=== PATIENT | male | born 1950 | race Caucasian/White ===

== ENCOUNTER 2018-11-10 13:47 | Emergency (ER) | payer MEDICARE, OTHER ==
[~2018-11-10] VITALS: Ht 185.4 cm; Wt 127.0 kg
[2018-11-10] MEDS ORDERED: METO50 PO (13:58)
[2018-11-10] MEDS ORDERED: LOSARTAN-HCTZ1 EAC1 PO (13:58)
[2018-11-10] MEDS ORDERED: TOCO1000 PO (13:58)
[2018-11-10] MEDS ORDERED: AMLO5 PO (13:58)
[2018-11-10] MEDS ORDERED: CLON.1 (13:58)
[2018-11-10 14:34] LABS: BASOPHILS ABSOLUTE AUTO 0.04 K/mm3 (0.00-0.23); BASOPHILS PERCENT AUTO 0 % (0-2); EOSINOPHILS ABSOLUTE AUTO 0.03 K/mm3 (0.00-0.68); EOSINOPHILS PERCENT AUTO 0 % (0-6); Hematocrit 47.3 % (37.0-53.0); Hemoglobin 15.7 g/dL (13.5-17.5); IMMATURE GRAN ABSOLUTE AUTO 0.05 K/mm3 (0.00-0.10); IMMATURE GRAN PERCENT AUTO 1 % (0-1); LYMPHOCYTES ABSOLUTE AUTO 1.89 K/mm3 (0.84-5.20); LYMPHOCYTES PERCENT AUTO 21 % (21-46); MONOCYTES ABSOLUTE AUTO 0.89 K/mm3 (0.16-1.47); MONOCYTES PERCENT AUTO 10 % (4-13); Mean Corpuscular HGB 30.9 pg (26.0-34.0); Mean Corpuscular HGB Conc 33.2 g/dL (31.5-36.5); Mean Corpuscular Volume 93 fL (80-100); Mean Platelet Volume 10.1 fL (9.1-12.4); NEUTROPHILS PERCENT AUTO 68 % (41-73); Platelet Count 246 K/mm3 (150-400); RDW Coefficient Variation 12.2 % (11.7-14.2); RDW Standard Deviation 42.2 fL (35.1-46.3); Red Blood Cell Count 5.08 M/mm3 (4.30-5.90)
[2018-11-10 14:49] LABS: Alanine Aminotransfer (ALT/SGP 29 U/L (12-78); Albumin/Globulin Ratio 1.1 (0.8-1.8); Alk Phos 79 U/L (50-136); Anion Gap 11 mmol/L (6-16); Aspartate Aminotrans (AST/SGOT 15 U/L (12-37); Bilirubin, Total 0.7 mg/dL (0.1-1.0); Blood Urea Nitrogen 16 mg/dL (8-24); Bun/Creatinine Ratio 19.7 (12.0-20.0); CO2, Blood 26 mmol/L (21-32); Calcium, Blood 8.5 mg/dL (8.5-10.1); Chloride, Blood 101 mmol/L (98-108); Creatinine, Blood 0.81 mg/dL (0.60-1.20); Globulin, Blood 3.6 g/dL (2.2-4.0); Glomerular Filtration Rate >60 (60-); Glucose, Blood 120 mg/dL (70-99); Potassium, Blood 2.8 mmol/L (3.5-5.5); Sodium, Blood 138 mmol/L (136-145); Total Protein, Blood 7.6 g/dL (6.4-8.2); Troponin I <0.015 ng/mL (0.000-0.040)
[2018-11-10] MEDS ORDERED: POTCHL20ER PO (17:27)
[2018-11-10] MEDS ORDERED: XARELTO20 MG PO (17:27)
== END 2018-11-10 17:54 | disposition home or self-care (01) ==
LOC: ER 13:47
PROVIDERS: Physician Assistant
DX: I48.91 Unspecified atrial fibrillation (principal); E87.6 Hypokalemia; I10 Essential (primary) hypertension; Z79.899 Other long term (current) drug therapy
CPT/HCPCS: 36415; 71046; 80053; 84484; 85025; 93005; 93010; 96374; 99285-25

== ENCOUNTER 2018-11-17 16:44 | Emergency (ER) | payer MEDICARE, OTHER ==
[~2018-11-17] VITALS: Ht 185.4 cm; Wt 127.0 kg
[~2018-11-17 16:44] MED LIST: AMLO5 PO; CLON.1 PO; LOSARTAN-HCTZ1 EAC1 PO; METO50 PO; POTCHL20ER PO; TOCO1000 PO; XARELTO20 MG PO
[2018-11-17] MEDS ORDERED: DILT180 PO (17:52)
[2018-11-17 18:19] LABS: BASOPHILS ABSOLUTE AUTO 0.07 K/mm3 (0.00-0.23); BASOPHILS PERCENT AUTO 1 % (0-2); EOSINOPHILS ABSOLUTE AUTO 0.09 K/mm3 (0.00-0.68); EOSINOPHILS PERCENT AUTO 1 % (0-6); Hematocrit 43.7 % (37.0-53.0); Hemoglobin 14.6 g/dL (13.5-17.5); IMMATURE GRAN ABSOLUTE AUTO 0.09 K/mm3 (0.00-0.10); IMMATURE GRAN PERCENT AUTO 1 % (0-1); LYMPHOCYTES ABSOLUTE AUTO 1.73 K/mm3 (0.84-5.20); LYMPHOCYTES PERCENT AUTO 17 % (21-46); MONOCYTES PERCENT AUTO 11 % (4-13); Mean Corpuscular HGB 31.4 pg (26.0-34.0); Mean Corpuscular HGB Conc 33.4 g/dL (31.5-36.5); Mean Corpuscular Volume 94 fL (80-100); Mean Platelet Volume 9.8 fL (9.1-12.4); NEUTROPHILS ABSOLUTE AUTO 7.28 K/mm3 (1.96-9.15); NEUTROPHILS PERCENT AUTO 70 % (41-73); Platelet Count 207 K/mm3 (150-400); RDW Coefficient Variation 12.7 % (11.7-14.2); RDW Standard Deviation 43.3 fL (35.1-46.3); Red Blood Cell Count 4.65 M/mm3 (4.30-5.90); White Blood Cell Count 10.36 K/mm3 (4.00-11.30)
[2018-11-17 18:47] LABS: Alanine Aminotransfer (ALT/SGP 41 U/L (12-78); Albumin, Blood 3.9 g/dL (3.4-5.0); Albumin/Globulin Ratio 1.2 (0.8-1.8); Alk Phos 83 U/L (50-136); Anion Gap 5 mmol/L (6-16); Aspartate Aminotrans (AST/SGOT 18 U/L (12-37); Bilirubin, Total 0.4 mg/dL (0.1-1.0); Blood Urea Nitrogen 14 mg/dL (8-24); Bun/Creatinine Ratio 17.6 (12.0-20.0); CO2, Blood 27 mmol/L (21-32); Calcium, Blood 8.6 mg/dL (8.5-10.1); Chloride, Blood 108 mmol/L (98-108); Globulin, Blood 3.2 g/dL (2.2-4.0); Glomerular Filtration Rate >60 (60-); Glucose, Blood 101 mg/dL (70-99); Potassium, Blood 4.1 mmol/L (3.5-5.5); Sodium, Blood 140 mmol/L (136-145); Total Protein, Blood 7.1 g/dL (6.4-8.2); Troponin I <0.015 ng/mL (0.000-0.040)
[2018-11-17] MEDS ORDERED: ALPR.5 PO (20:11)
[2018-11-17 21:39] LABS: Magnesium, Blood 2.3 mg/dL (1.6-2.4)
[2018-11-17 21:41] LABS: Thyroid Stimulating Hormone 4.2 uIU/mL (0.360-4.800)
== END 2018-11-17 22:02 | disposition home or self-care (01) ==
LOC: ER 16:44
PROVIDERS: Emergency Medicine; Nurse Practitioner Acute Care
DX: I48.91 Unspecified atrial fibrillation (principal); I10 Essential (primary) hypertension; Z79.899 Other long term (current) drug therapy; Z87.891 Personal history of nicotine dependence
CPT/HCPCS: 36415; 71046; 80053; 83735; 83880; 84443; 84484; 85025; 93005; 93010; 96374; 99285-25

== ENCOUNTER 2023-07-19 11:39 | Emergency (ER) | payer MEDICARE ==
[~2023-07-19] VITALS: Ht 182.9 cm; Wt 118.8 kg
[~2023-07-19 11:39] MED LIST changes: +ALPR.5 PO; +DILT180 PO; +K-RIGHT SOFTGE1 EACH PO; +THERA-D2000 UNIT PO
[2023-07-19 12:03] VITALS: BP 187/98
[2023-07-19 12:24] LABS: Source, Urine Clean Catch
[2023-07-19 12:37] LABS: Appearance, Urine Clear (Clear); Bilirubin, Urine Neg (Neg); Blood, Urine 1+ (Neg); Color, Urine Yellow (P-Yellow); Glucose Qualitative, Urine Neg (Neg); Ketones, Urine Neg (Neg); Leukocyte Esterase, Urine 1+ (Neg); Nitrite, Urine Neg (Neg); Protein, Urine Neg (Neg); Urobilinogen, Urine NORM (Normal)
[2023-07-19 12:44] LABS: Hyaline Casts 0-2 /lpf (0-2)
[2023-07-19 12:45] LABS: Bacteria Few /hpf; Mucus Heavy (0-Heavy); Squamous Epithelial Cells Rare /hpf (Few)
[2023-07-19 12:53] LABS: Influenza A, PCR NEGATIVE (NEGATIVE); Influenza B, PCR NEGATIVE (NEGATIVE); Resp Syncytial Virus, PCR NEGATIVE (NEGATIVE); SARS-Cov-2 (COVID-19) PCR, MMC NEGATIVE (NEGATIVE)
== END 2023-07-19 13:25 | disposition home or self-care (01) ==
LOC: ER 11:39
PROVIDERS: Student in an Organized Health Care Education/Training Program
DX: Z01.818 Encounter for other preprocedural examination (principal); R50.9 Fever, unspecified; M79.81 Nontraumatic hematoma of soft tissue; R82.71 Bacteriuria; Z20.822 Contact with and (suspected) exposure to COVID-19; I10 Essential (primary) hypertension; I48.91 Unspecified atrial fibrillation; Z87.891 Personal history of nicotine dependence; Z79.899 Other long term (current) drug therapy; Z88.5 Allergy status to narcotic agent
CPT/HCPCS: 0241U; 81001; 87086; 99282

== ENCOUNTER 2023-07-21 06:06 | Day surgery (SDC) | payer MEDICARE ==
[~2023-07-21] VITALS: Ht 180 cm; Wt 114.5 kg
[2023-07-21] VITALS (18 sets, daily range): BP systolic 103–174; BP diastolic 60–92
[2023-07-21] MEDS ORDERED: FUROSEMIDE40 MG PO (07:13)
--- NOTE | 2023-07-21 07:18 | NUR ---
History, Chart, Medications and Allergies reviewed before start of procedure. Ambulatory in Day Surgery. Pre-Op teaching done. Pt verbalizes understanding. Patient confirms NPO status and agrees with scheduled surgery. Patient reports completing Chlorhexadine shower X2 prior to admission to hospital. Surgical site prepped with 2% Chlorhexidine cloth wipe. Lungs clear T/O to Auscultation. Patient States Post-Procedure ride home has been arranged.
--- NOTE | 2023-07-21 08:49 | NUR ---
07/21/23 0849 Maurice Lowry I TWO PIECES OF FOAM PLACED IN WOUND. 07/21/23
--- NOTE | 2023-07-21 10:47 | NUR ---
DISCHARGE NOTE PT A&OX4, BREATHING RA, NO COMPLAINTS, TOLERATING PO FLUIDS AND FOOD. 0977 DR GUTIERREZ AT BEDSIDE TO ASSESS WOUND AND DRAINAGE, NO ADDITIONAL INSTRUCTION. 1015 TRIMMER OPERATOR TO ASSESS WOUND VAC ALARM- BROUGHT ADDITIONAL CANISTERS FOR CHANGING AT HOME AND PROVIDED WOUND CARE INSTRUCTIONS TO PATIENT. 2791 ACE DICKENSMIGRATION AGENT NURSE REPLACED DRESSING.
== END 2023-07-21 12:50 | disposition home or self-care (01) ==
LOC: ORSCMMR 06:06 → ORD 07:30 → ORSCMMR 07:30
PROVIDERS: Surgery
PROC: 0JB90ZZ Excision of Buttock Subcutaneous Tissue and Fascia, Open Approach (ICD-10-PCS; principal; 2023-07-21 07:30)
DX: S30.0XXD Contusion of lower back and pelvis, subsequent encounter (principal); C49.8 Malignant neoplasm of overlapping sites of connective and soft tissue; I10 Essential (primary) hypertension; I48.91 Unspecified atrial fibrillation; Z79.899 Other long term (current) drug therapy; Z87.891 Personal history of nicotine dependence; Z79.01 Long term (current) use of anticoagulants
CPT/HCPCS: 88305; A9270; J0690; J1100; J1170; J2405; J2704; J3010; J7120

== ENCOUNTER 2023-07-25 21:24 | Emergency (ER) | payer MEDICARE ==
[~2023-07-25] VITALS: Ht 188 cm; Wt 99.8 kg
[~2023-07-25 21:24] MED LIST changes: +FUROSEMIDE40 MG PO
== END 2023-07-25 23:00 | disposition home or self-care (01) ==
LOC: ER 21:24
DX: Z48.01 Encounter for change or removal of surgical wound dressing (principal); S30.0XXA Contusion of lower back and pelvis, initial encounter; I10 Essential (primary) hypertension; I48.91 Unspecified atrial fibrillation; Z88.5 Allergy status to narcotic agent; Z79.899 Other long term (current) drug therapy; X58.XXXA Exposure to other specified factors, initial encounter
CPT/HCPCS: 99282

== ENCOUNTER 2023-07-26 02:57 | Day surgery (SDC) | payer MEDICARE | END 2023-07-26 22:56 | disposition home or self-care (01) | LOC: WOUND 02:57 | DX: T81.31XD Disruption of external operation (surgical) wound, not elsewhere classified, subsequent encounter (principal); M79.81 Nontraumatic hematoma of soft tissue; D68.32 Hemorrhagic disorder due to extrinsic circulating anticoagulants; Z88.5 Allergy status to narcotic agent; Z87.891 Personal history of nicotine dependence; Y83.8 Other surgical procedures as the cause of abnormal reaction of the patient, or of later complication, without mention of misadventure at the time of the procedure | CPT/HCPCS: A9270; G0463 ==

== ENCOUNTER 2023-07-28 01:46 | Day surgery (SDC) | payer MEDICARE | END 2023-07-28 22:35 | disposition home or self-care (01) | LOC: WOUND 01:46 | DX: M79.81 Nontraumatic hematoma of soft tissue (principal); S31.829D Unspecified open wound of left buttock, subsequent encounter; D68.32 Hemorrhagic disorder due to extrinsic circulating anticoagulants; X58.XXXD Exposure to other specified factors, subsequent encounter ==

== ENCOUNTER 2023-07-30 03:46 | Day surgery (SDC) | payer MEDICARE | END 2023-07-30 22:49 | disposition home or self-care (01) | LOC: WOUND 03:46 | DX: M79.81 Nontraumatic hematoma of soft tissue (principal); S31.829D Unspecified open wound of left buttock, subsequent encounter; D68.32 Hemorrhagic disorder due to extrinsic circulating anticoagulants; X58.XXXD Exposure to other specified factors, subsequent encounter | CPT/HCPCS: A9270 ==

== ENCOUNTER 2023-08-02 03:46 | Day surgery (SDC) | payer MEDICARE | END 2023-08-02 22:49 | disposition home or self-care (01) | LOC: WOUND 03:46 | DX: S31.829D Unspecified open wound of left buttock, subsequent encounter (principal); D68.32 Hemorrhagic disorder due to extrinsic circulating anticoagulants; M79.81 Nontraumatic hematoma of soft tissue | CPT/HCPCS: A9270 ==

== ENCOUNTER 2023-08-09 03:30 | Day surgery (SDC) | payer MEDICARE ==
[2023-08-10] MEDS ORDERED: XARELTO20 MG PO (17:01)
[2023-08-10] MEDS ORDERED: IMIP25 PO (17:02)
== END 2023-08-09 23:06 | disposition home or self-care (01) ==
LOC: WOUND 03:30
DX: S31.829D Unspecified open wound of left buttock, subsequent encounter (principal); D68.32 Hemorrhagic disorder due to extrinsic circulating anticoagulants; M79.81 Nontraumatic hematoma of soft tissue

== ENCOUNTER 2023-08-10 11:27 | Day surgery (SDC) | payer MEDICARE ==
[2023-08-10] MEDS ORDERED: XARELTO20 MG PO (17:01)
[2023-08-10] MEDS ORDERED: IMIP25 PO (17:02)
[2023-08-11] MEDS ORDERED: OXYB5 PO (16:58)
== END 2023-08-10 22:41 | disposition home or self-care (01) ==
LOC: WOUND 11:27
DX: M79.81 Nontraumatic hematoma of soft tissue (principal)
CPT/HCPCS: G0463

== ENCOUNTER 2023-08-10 12:00 | Inpatient (IN) | payer MEDICARE ==
[~2023-08-10] VITALS: Ht 188 cm; Wt 114.5 kg
[2023-08-10 12:44] LABS: Hematocrit 21.5 % (37.0-53.0); Hemoglobin 6.5 g/dL (13.5-17.5); Mean Corpuscular HGB 23.1 pg (26.0-34.0); Mean Corpuscular HGB Conc 30.2 g/dL (31.5-36.5); Mean Corpuscular Volume 77 fL (80-100); Mean Platelet Volume 9.3 fL (9.1-12.4); NRBC ABSOLUTE 0.05 K/mm3 (0.00-0.02); NRBC Auto 0.2 /100 WBC (0.0-0.2); Platelet Count 561 K/mm3 (150-400); RDW Coefficient Variation 15.3 % (11.7-14.2); RDW Standard Deviation 42.3 fL (35.1-46.3); Red Blood Cell Count 2.81 M/mm3 (4.30-5.90); White Blood Cell Count 29.83 K/mm3 (4.00-11.30)
[2023-08-10 13:04] LABS: Albumin, Blood 2.1 g/dL (3.4-5.0); Albumin/Globulin Ratio 0.5 (0.8-1.8); Bilirubin, Total 0.3 mg/dL (0.1-1.0); Bun/Creatinine Ratio 24.7 (12.0-20.0); Calcium, Blood 8.3 mg/dL (8.5-10.1); Creatinine, Blood 0.81 mg/dL (0.60-1.20); Globulin, Blood 4.5 g/dL (2.2-4.0); Potassium, Blood 4.3 mmol/L (3.5-5.5); Total Protein, Blood 6.6 g/dL (6.4-8.2)
[2023-08-10 13:22] LABS: BAND PERCENT MAN 14 % (0-8); BASOPHILS ABSOLUTE MAN 0.29 K/mm3 (0.00-0.23); BASOPHILS PERCENT MAN 1 % (0-2); EOSINOPHILS ABSOLUTE MAN 3.87 K/mm3 (0.00-0.68); EOSINOPHILS PERCENT MAN 13 % (0-6); LYMPHOCYTES ABSOLUTE MAN 1.19 K/mm3 (0.84-5.20); LYMPHOCYTES PERCENT MAN 4 % (21-46); MONOCYTES ABSOLUTE MAN 1.78 K/mm3 (0.16-1.47); MONOCYTES PERCENT MAN 6 % (4-13); NEUTROPHILS ABSOLUTE MAN 22.67 K/mm3 (1.96-9.15); SEG NEUTROPHILS PERCENT MAN 62 % (41-73); TOTAL CELLS COUNTED 100
[2023-08-10 13:25] LABS: Source, Urine Voided
[2023-08-10 13:39] LABS: Appearance, Urine Clear (Clear); Bilirubin, Urine Neg (Neg); Blood, Urine 1+ (Neg); Color, Urine Yellow (P-Yellow); Glucose Qualitative, Urine Neg (Neg); Ketones, Urine Neg (Neg); Leukocyte Esterase, Urine Neg (Neg); Nitrite, Urine Neg (Neg); Protein, Urine 2+ (Neg); Urobilinogen, Urine NORM (Normal)
[2023-08-10 14:09] LABS: White Blood Cells, Urine 0-2 /hpf (0-5)
[2023-08-10 14:10] LABS: Bacteria Rare /hpf; Squamous Epithelial Cells Rare /hpf (Few)
[2023-08-10 14:17] LABS: Influenza A, PCR NEGATIVE (NEGATIVE); Influenza B, PCR NEGATIVE (NEGATIVE); Resp Syncytial Virus, PCR NEGATIVE (NEGATIVE); SARS-Cov-2 (COVID-19) PCR, MMC NEGATIVE (NEGATIVE)
[2023-08-10] MEDS ORDERED: XARELTO20 MG PO (17:01)
[2023-08-10] MEDS ORDERED: IMIP25 PO (17:02)
[2023-08-10 17:52] VITALS: BP 114/59
[2023-08-10 18:40] VITALS: BP 125/67
--- NOTE | 2023-08-10 19:27 | NUR ---
SHIFT SUMMARY; PATIENT ARRIVED APPROX 1630 FROM ER. HE IS AO X 4 ON ARRIVAL. WOUND IS SOAKING THROUGH BANDAGES AND ONTO GOWN AND SHEETS. HE HAS DIFFICULTY URINATING AND ONLY ABLE TO GO WHEN LAYING ON HIS SIDE AND HAVING A BOWEL MOVEMENT PER PATIENT. HE IS RECEIVING BLOOD X 2 UNITS PER . FAMILY AT BEDSIDE. PATIENT SAYS HE TAKES TYLENOL Q 4 HOURS FOR PAIN. NO ORDER FOR TYLENOL HAS BEEN RECEIVED WILL CALL MD FOR ORDER.
[2023-08-10 19:45] VITALS: BP 126/68
[2023-08-10 21:54] VITALS: BP 135/77
[2023-08-11 00:10] VITALS: BP 140/71
[2023-08-11 01:04] LABS: Hematocrit 23.2 % (37.0-53.0); Hemoglobin 7.3 g/dL (13.5-17.5)
--- NOTE | 2023-08-11 03:57 | NUR ---
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 FULL CODE. IV ANTIB RX ARE SCHEDULED. 2 UNITS OF PRBC'S HAVE BEEN GIVEN. TELEMETRY: NSR @ 84 BPM. HX OF SARCOMA. WOUND VAC REMOVED DUE TO SEPSIS. WOUND PACKED WITH GAUZE ROLLS AND ABD PADS, DRAINING SEROSANGINOUS FLUID. MONITORING FREQUENTLY FOR DRESSING CHANGES DUE TO SIGNIFICANT DRAINAGE. HE IS ON RA. HE IS A&O X4. HE IS MEDICATED WITH TYLENOL THIS SHIFT PER HIS REQUESTS.
[2023-08-11 04:26] VITALS: BP 157/82
[2023-08-11 05:23] LABS: BASOPHILS ABSOLUTE AUTO 0.11 K/mm3 (0.00-0.23); BASOPHILS PERCENT AUTO 0 % (0-2); EOSINOPHILS ABSOLUTE AUTO 2.67 K/mm3 (0.00-0.68); EOSINOPHILS PERCENT AUTO 10 % (0-6); Hematocrit 22.6 % (37.0-53.0); Hemoglobin 7.1 g/dL (13.5-17.5); IMMATURE GRAN ABSOLUTE AUTO 1.03 K/mm3 (0.00-0.10); IMMATURE GRAN PERCENT AUTO 4 % (0-1); LYMPHOCYTES ABSOLUTE AUTO 1.27 K/mm3 (0.84-5.20); LYMPHOCYTES PERCENT AUTO 5 % (21-46); MONOCYTES ABSOLUTE AUTO 3.68 K/mm3 (0.16-1.47); MONOCYTES PERCENT AUTO 13 % (4-13); Mean Corpuscular HGB 24.5 pg (26.0-34.0); Mean Corpuscular HGB Conc 31.4 g/dL (31.5-36.5); Mean Corpuscular Volume 78 fL (80-100); Mean Platelet Volume 9.4 fL (9.1-12.4); NEUTROPHILS ABSOLUTE AUTO 19.38 K/mm3 (1.96-9.15); NEUTROPHILS PERCENT AUTO 69 % (41-73); NRBC ABSOLUTE 0.04 K/mm3 (0.00-0.02); NRBC Auto 0.1 /100 WBC (0.0-0.2); Platelet Count 498 K/mm3 (150-400); RDW Coefficient Variation 15.4 % (11.7-14.2); RDW Standard Deviation 42.8 fL (35.1-46.3); White Blood Cell Count 28.14 K/mm3 (4.00-11.30)
[2023-08-11 05:45] LABS: Albumin, Blood 1.8 g/dL (3.4-5.0); Albumin/Globulin Ratio 0.5 (0.8-1.8); Bilirubin, Total 0.7 mg/dL (0.1-1.0); Bun/Creatinine Ratio 23.7 (12.0-20.0); Calcium, Blood 7.8 mg/dL (8.5-10.1); Creatinine, Blood 0.68 mg/dL (0.60-1.20); Globulin, Blood 3.9 g/dL (2.2-4.0); Potassium, Blood 3.7 mmol/L (3.5-5.5); Total Protein, Blood 5.7 g/dL (6.4-8.2)
[2023-08-11 07:44] VITALS: BP 147/88
--- NOTE | 2023-08-11 11:12 | NUR ---
WOUND CARE WOUND CARE OUTER LAYER EXUDRY CHANGED. KERLEX PARTIALLY SATURATED WITH SEROSngenious fluid. no odor noted. TALKED WITH DANTE BELLO, WOUND CARE, HE IS NOT A CANDIDATE FOR A WOUND VAC D/T VOLUME/CHARACTER OF DRAINAGE. CONTINUE POC.
[2023-08-11 12:13] LABS: Stool Occult Blood Guaiac 1 Neg (Neg)
--- NOTE | 2023-08-11 12:52 | NUR ---
WOUND CARE HOLD WOUND VAC. DRY TO DRY DRESSING CHAGES BID. WILL MOST LIKELY NEED TO CHANGE ABD MORE FREQUENTLY D/T AMOUNT OF DRAINAGE. OKAY TO CHANGE COVER DRESSING WITHOUT CHANGING PACKING FOR STRIKE-THROUGH DRAINAGE. PLEASE USE SKIN PREP TO PERIWOUND TO PREVENT BREAKDOWN
--- NOTE | 2023-08-11 13:39 | NUR ---
NOTE PT UP IN RECLINER AT BEDSIDE. ABLE TO WALK WITH 1 ASSIST AND FWW. PT COMFORTABLE IN CHAIR. DRESSING CHANGED X2 SO FAR TODAY. PAIN CONTROLLED WITH ROUTINE TYLENOL. EATING WELL. VOIDING KALLI URINE PER URINEAL. FAMILY AT BEDSIDE. CONTINUE POC.
[2023-08-11 15:03] VITALS: BP 144/68
--- NOTE | 2023-08-11 16:37 | NUR ---
DR LANGLEY-[facility] DR LANGLEY, [facility] CALL[facility] TO [facility] ON [facility]. PHONE [phone]. CARE ON GOING.
--- NOTE | 2023-08-11 16:42 | NUR ---
DR LANGLEY CALLED DR OVALLES TO PASS ON PHONE NUMBER TO CLINIC. CARE ONGOING.
[2023-08-11] MEDS ORDERED: OXYB5 PO (16:58)
--- NOTE | 2023-08-11 17:16 | NUR ---
NOTE PT ALERT. RESTING COMFORTABLY. TYLENOL EFFECTIVE FOR DISCOMFORT. PTOTONIX GTT INFUSING AT 10 ML/HR. POWER GLIDE PLACED RIGHT UE FOR VANCOMYCIN THERAPY. PT AMBULATED TO THE BATHROOM WITH FWW. GAIT SLOW, STEADY. BM X1. HE THEN SAT UP IN THE RECLINER FOR SEVERAL HOURS. MILD SOB WITH ACTIVITY. TELEMETRY-NSR. FAMILY AT BEDSIDE. EATING WELL, MILD ELEVATED TEMPERATURE THIS EVENING. DRESSING TO LEFT HIP CHANGED X3. CARE ONGLING.
[2023-08-11 19:18] VITALS: BP 152/73
--- NOTE | 2023-08-12 03:53 | NUR ---
SHIFT SUMMARY ADMITTED FOR CHRONIC HEMATOMA OF THE LEFT HIP. FULL CODE. PROTONIX INFUSING. HE DOES GET TACHYCARDIC WHEN HE MOVES OR AMBULATES (140'S-150'S BPM) BUT THIS SUBSIDES WHEN HE RESTS. TELEMETRY: TACHY @ 104 BPM. MONITORING H&H. 2 UNITS OF PRBC'S GIVEN SINCE ADMIT. 1 ASSIST W/FWW. POWERGLIDE IN RUE. RECENT NEW DIAGNOSIS OF SARCOMA. POSSIBLE OUTPT TREATMENT AT [facility] PLANNED.
[2023-08-12 05:27] VITALS: BP 164/85
[2023-08-12 07:08] LABS: BASOPHILS ABSOLUTE AUTO 0.13 K/mm3 (0.00-0.23); BASOPHILS PERCENT AUTO 0 % (0-2); EOSINOPHILS ABSOLUTE AUTO 3.31 K/mm3 (0.00-0.68); EOSINOPHILS PERCENT AUTO 10 % (0-6); Hemoglobin 7.1 g/dL (13.5-17.5); IMMATURE GRAN PERCENT AUTO 4 % (0-1); LYMPHOCYTES ABSOLUTE AUTO 1.76 K/mm3 (0.84-5.20); LYMPHOCYTES PERCENT AUTO 6 % (21-46); MONOCYTES ABSOLUTE AUTO 3.49 K/mm3 (0.16-1.47); MONOCYTES PERCENT AUTO 11 % (4-13); Mean Corpuscular HGB 23.7 pg (26.0-34.0); Mean Corpuscular HGB Conc 30.9 g/dL (31.5-36.5); Mean Corpuscular Volume 77 fL (80-100); Mean Platelet Volume 9.1 fL (9.1-12.4); NEUTROPHILS ABSOLUTE AUTO 21.86 K/mm3 (1.96-9.15); NEUTROPHILS PERCENT AUTO 69 % (41-73); Platelet Count 524 K/mm3 (150-400); RDW Coefficient Variation 15.9 % (11.7-14.2); RDW Standard Deviation 43.8 fL (35.1-46.3); Red Blood Cell Count 2.99 M/mm3 (4.30-5.90); White Blood Cell Count 31.75 K/mm3 (4.00-11.30)
[2023-08-12 07:26] LABS: Alanine Aminotransfer (ALT/SGP 28 U/L (12-78); Albumin, Blood 1.7 g/dL (3.4-5.0); Albumin/Globulin Ratio 0.4 (0.8-1.8); Alk Phos 116 U/L (50-136); Anion Gap 7 mmol/L (6-16); Aspartate Aminotrans (AST/SGOT 12 U/L (12-37); Bilirubin, Total 0.3 mg/dL (0.1-1.0); Blood Urea Nitrogen 11 mg/dL (8-24); Bun/Creatinine Ratio 16.6 (12.0-20.0); CO2, Blood 23 mmol/L (21-32); Calcium, Blood 7.8 mg/dL (8.5-10.1); Chloride, Blood 108 mmol/L (98-108); Creatinine, Blood 0.66 mg/dL (0.60-1.20); Glomerular Filtration Rate 98 (60-); Glucose, Blood 158 mg/dL (70-99); Potassium, Blood 3.7 mmol/L (3.5-5.5); Sodium, Blood 138 mmol/L (136-145); Total Protein, Blood 5.7 g/dL (6.4-8.2)
--- NOTE | 2023-08-12 16:13 | NUR ---
NOTE PT UP IN RECLINER FOR THE AFTERNOON. EATING WELL. [id number] EFFECTIVE FOR PAIN CONTROL. LEFT HIP DRESSING CHANGED X2. DRAINAGE TELEPHONE EXCHANGE OPERATOR IN COLOR. NO ODOR NOTED. PT UP WALKING WITH FWW AND SBA D/T PUMP. PROTONIX GTT IN FUSING 10MG/HR. RIGHT UE POWER GLIDE INFUSING BUT NOT DRAWING. VOIDING PER URINAL. ENCOURAGED TO DRINK. FAMILY AT BEDSIDE. CONTINUE POC.
[2023-08-12 20:06] VITALS: BP 143/70
--- NOTE | 2023-08-13 04:04 | NUR ---
SHIFT SUMMARY ADMITTED FOR CHRONIC LEFT HIP HEMATOMA/OSTEOSARCOMA. FULL CODE. IV ANTIB RX. TELEMETRY: NSR @ 87 BPM. [address] IS IN PLACE ON RUE. ON RA. 1 ASSIST TO BSC. 2 UNITS OF PRBC'S INFUSED SINCE ADMIT. DRESSINGS CHANGED EACH SHIFT AND PRN. MONITORING H&H LABS. A&O X4, FORGETFUL. ON REGULAR DIET. NO NEW CONCERNS THIS SHIFT
[2023-08-13 04:58] VITALS: BP 151/77
[2023-08-13 05:11] LABS: BASOPHILS ABSOLUTE AUTO 0.14 K/mm3 (0.00-0.23); BASOPHILS PERCENT AUTO 0 % (0-2); EOSINOPHILS ABSOLUTE AUTO 3.44 K/mm3 (0.00-0.68); EOSINOPHILS PERCENT AUTO 10 % (0-6); Hematocrit 23.9 % (37.0-53.0); Hemoglobin 7.4 g/dL (13.5-17.5); IMMATURE GRAN PERCENT AUTO 3 % (0-1); LYMPHOCYTES ABSOLUTE AUTO 2.05 K/mm3 (0.84-5.20); LYMPHOCYTES PERCENT AUTO 6 % (21-46); MONOCYTES ABSOLUTE AUTO 3.59 K/mm3 (0.16-1.47); MONOCYTES PERCENT AUTO 11 % (4-13); Mean Corpuscular HGB 24.3 pg (26.0-34.0); Mean Corpuscular Volume 78 fL (80-100); Mean Platelet Volume 9.1 fL (9.1-12.4); NEUTROPHILS ABSOLUTE AUTO 23.21 K/mm3 (1.96-9.15); NEUTROPHILS PERCENT AUTO 69 % (41-73); Platelet Count 573 K/mm3 (150-400); RDW Coefficient Variation 16.6 % (11.7-14.2); RDW Standard Deviation 45.6 fL (35.1-46.3); Red Blood Cell Count 3.05 M/mm3 (4.30-5.90); White Blood Cell Count 33.53 K/mm3 (4.00-11.30)
[2023-08-13 05:53] LABS: Albumin, Blood 1.6 g/dL (3.4-5.0); Albumin/Globulin Ratio 0.4 (0.8-1.8); Bilirubin, Total 0.4 mg/dL (0.1-1.0); Bun/Creatinine Ratio 21.6 (12.0-20.0); Calcium, Blood 7.9 mg/dL (8.5-10.1); Creatinine, Blood 0.6 mg/dL (0.60-1.20); Globulin, Blood 4.2 g/dL (2.2-4.0); Potassium, Blood 3.8 mmol/L (3.5-5.5); Total Protein, Blood 5.8 g/dL (6.4-8.2)
[2023-08-13 07:23] VITALS: BP 138/94
--- NOTE | 2023-08-13 14:47 | NUR ---
DRESSING CHANGE DRESSING CHANGED PER ORDERS THIS SHIFT.
--- NOTE | 2023-08-13 17:37 | NUR ---
SHIFT SUMMARY PT A&OX4, VSS, AMB W/ 1 ASSIST, TOLERATING PO, VOIDING, AND PAIN MANAGED PER EMAR. PT ABLE TO GET UP IN THE CHAIR THIS SHIFT AND TOLERATED WELL. DRESSING CHANGED PER ORDERS AND NO OTHER ACUTE CHANGES THIS SHIFT. AWAITING COBRA TRANSFER TO [facility].
[2023-08-13 17:55] VITALS: BP 141/83
[2023-08-13 20:04] LABS: Vancomycin, Trough 15.6 ug/mL (5.0-10.0)
[2023-08-13 20:14] VITALS: BP 150/83
--- NOTE | 2023-08-14 00:33 | NUR ---
NOTIFIED BY SCRAP SAWYER THAT PT HAD 6 SEC RUN OF SVT. CHECKED ON PT AND PT WAS ASYMPTOMATIC SAID THEY WERE MOVING AROUND IN BED. HOSPITALIST NOTIFIED AND INSTRUCTIONS GIVEN TO CONTINUE MONITORING.
--- NOTE | 2023-08-14 01:14 | NUR ---
RECEIVED CALL FROM [facility] TRANSFER RN DANIEL ABOUT PT MEDICAL STATUS. WAS TOLD THAT THERE IS STILL NO [facility] TO [facility] FOR SURGERY. SHE ALSO SAID TO CONTACT [facility] IF PT MEDICAL STATUS CHANGES.
[2023-08-14 04:37] VITALS: BP 154/85
--- NOTE | 2023-08-14 05:01 | NUR ---
SHIFT SUMMARY NOC PT A/O X 4. PLEASANT AND COOPERATIVE WITH CARE. PT STILL AWAITING COBRA TRANSFER FOR BED AT [facility] FOR SURGERY ON 08/19/23, [facility] TRANSFER RN DANIEL CALLED FOR UPDATE ON PT MEDICAL STATUS, AND SAID TO CALL [facility] IF PT CONDITION CHANGES. PT WOUND ON L GLUTEAL FOLD/HIP HAD SOME SEROSANGENOUS DRAINAGE, DRESSING WAS CHANGED AND IS C/D/I. PT ON TELE RUNNING SINUS RHYTHM @ 80 BPM, BUT HAD A 6 SECOND RUN OF SVT, PT WAS ASYMPTOMATIC AND HOSPITALIST NOTIFIED AND TOLD TO CONTINUE MONITORING, WELL MAGNESIUM LAB DRAW IN AM. AT BEGINNING OF SHIFT PT HAD TRACE EDEMA IN BLE AND THEY WERE ELEVATED ON PILLOWS WHICH REDUCED SWELLING. PT ASKED WHY HOME RX OF LASIX WAS NOT BEING GIVEN, WILL PASS INFO ALONG TO DAY RN. PT HAS PG IN [place] THAT DOES NOT DRAW AND NEEDS TO BE FLUSHED SLOWLY DUE TO DISCOMFORT PT REPORTS IF FLUSHED TO FAST. PT IS CURRENTLY RESTING WITH BED IN LOWEST POSITION, AND CALL LIGHT WITHIN REACH.
[2023-08-14 05:11] LABS: BASOPHILS ABSOLUTE AUTO 0.12 K/mm3 (0.00-0.23); BASOPHILS PERCENT AUTO 0 % (0-2); EOSINOPHILS ABSOLUTE AUTO 3.15 K/mm3 (0.00-0.68); EOSINOPHILS PERCENT AUTO 9 % (0-6); Hematocrit 24.2 % (37.0-53.0); Hemoglobin 7.3 g/dL (13.5-17.5); IMMATURE GRAN ABSOLUTE AUTO 1.13 K/mm3 (0.00-0.10); IMMATURE GRAN PERCENT AUTO 3 % (0-1); LYMPHOCYTES ABSOLUTE AUTO 2.08 K/mm3 (0.84-5.20); LYMPHOCYTES PERCENT AUTO 6 % (21-46); MONOCYTES ABSOLUTE AUTO 3.52 K/mm3 (0.16-1.47); MONOCYTES PERCENT AUTO 10 % (4-13); Mean Corpuscular HGB 23.9 pg (26.0-34.0); Mean Corpuscular HGB Conc 30.2 g/dL (31.5-36.5); Mean Corpuscular Volume 79 fL (80-100); Mean Platelet Volume 9.1 fL (9.1-12.4); NEUTROPHILS ABSOLUTE AUTO 24.01 K/mm3 (1.96-9.15); NEUTROPHILS PERCENT AUTO 71 % (41-73); Platelet Count 610 K/mm3 (150-400); RDW Standard Deviation 46.9 fL (35.1-46.3); Red Blood Cell Count 3.06 M/mm3 (4.30-5.90); White Blood Cell Count 34.01 K/mm3 (4.00-11.30)
[2023-08-14 05:56] LABS: Albumin, Blood 1.6 g/dL (3.4-5.0); Albumin/Globulin Ratio 0.4 (0.8-1.8); Bilirubin, Total 0.3 mg/dL (0.1-1.0); Bun/Creatinine Ratio 24.8 (12.0-20.0); Calcium, Blood 7.9 mg/dL (8.5-10.1); Creatinine, Blood 0.65 mg/dL (0.60-1.20); Globulin, Blood 4.2 g/dL (2.2-4.0); Magnesium, Blood 2.1 mg/dL (1.6-2.4); Total Protein, Blood 5.8 g/dL (6.4-8.2)
--- NOTE | 2023-08-14 06:27 | NUR ---
NOTIFIED BY TELE MONITOR THAT PT HAD RUN OF SVT 169-170 FOR 5 SECONDS. CHECKED ON PT AND PT ASYMPTOMATIC AND SOUND ASLEEP. HOSPITALIST NOTIFIED AND NO FURTHER ORDERS GIVEN EXCEPT TO CONTINUE MONITORING FOR CHANGE IN PT CONDITION.
[2023-08-14 07:44] VITALS: BP 154/80
[2023-08-14 15:23] VITALS: BP 145/82
[2023-08-14 19:21] VITALS: BP 166/80
--- NOTE | 2023-08-14 19:38 | NUR ---
SHIFT SUMMARY A&O X 4, VSS. LOW GRADE TEMP NOTED. WOUND DRESSING CHANGE DONE PER MD ORDERS. TEMP SPIKED THIS AFTER NOON TO >101, DR. OVALLES NOTIFIED & AWARE. AT SHIFT CHANGE PT CALLED RN TO ROOM REQUESTING TEMP CHECK, TEMP 103.1. TYLENOL GIVEN ORDERED, TEMP DECREASED TO 101.9 35 MINS AFTER TYLENOL. ONCOMING RN NOTIFIED. PT IS AWAITING COBRA TRANSFER TO [facility].
--- NOTE | 2023-08-15 02:30 | NUR ---
[facility] TRANSFER RN DANIEL CALLED TO CHECK ON MEDICAL STATUS OF PT. REPORT GIVEN OF INCREASES WBC COUNT YESTERDAY AM, DECREASED HGB, AND FEBRILE EPISODES DURING DAY SHIFT. STATUS GIVEN ON LEFT HIP/GLUTEAL WOUND BEING CLEANED AND DRESSED BID/PRN, WOUND HAS NO ODOR AND BEEFY RED IN COLOR.
[2023-08-15 04:27] VITALS: BP 157/86
[2023-08-15 05:04] LABS: Hematocrit 24.5 % (37.0-53.0); Hemoglobin 7.4 g/dL (13.5-17.5); Mean Corpuscular HGB Conc 30.2 g/dL (31.5-36.5); Mean Corpuscular Volume 80 fL (80-100); Mean Platelet Volume 8.9 fL (9.1-12.4); Platelet Count 577 K/mm3 (150-400); RDW Coefficient Variation 17.2 % (11.7-14.2); RDW Standard Deviation 48.9 fL (35.1-46.3); Red Blood Cell Count 3.08 M/mm3 (4.30-5.90); White Blood Cell Count 30.19 K/mm3 (4.00-11.30)
[2023-08-15 05:36] LABS: BAND PERCENT MAN 13 % (0-8); BASOPHILS PERCENT MAN 0 % (0-2); EOSINOPHILS ABSOLUTE MAN 4.52 K/mm3 (0.00-0.68); EOSINOPHILS PERCENT MAN 15 % (0-6); LYMPHOCYTES ABSOLUTE MAN 2.41 K/mm3 (0.84-5.20); LYMPHOCYTES PERCENT MAN 8 % (21-46); MONOCYTES PERCENT MAN 2 % (4-13); NEUTROPHILS ABSOLUTE MAN 22.64 K/mm3 (1.96-9.15); SEG NEUTROPHILS PERCENT MAN 62 % (41-73); TOTAL CELLS COUNTED 100
[2023-08-15 05:43] LABS: Bun/Creatinine Ratio 24.5 (12.0-20.0); Calcium, Blood 7.8 mg/dL (8.5-10.1); Creatinine, Blood 0.65 mg/dL (0.60-1.20); Potassium, Blood 4.1 mmol/L (3.5-5.5)
--- NOTE | 2023-08-15 07:16 | NUR ---
SHIFT SUMMARY [facility] PT A/O X 4. PLEASANT AND COOPERATIVE WITH CARE. NO ACUTE CHANGES TO REPORT. PT REMAINED AFEBRILE DURING NOC SHIFT. L HIP/GLUTEAL WOUND CLEANED AND DRESSED PER WOUND CARE ORDERS. PT ON TELE RUNNING SINUS RHYTHM IN 90'S, AND HAD ONE RUN IN 150'S FOR 3 SECONDS WHEN PT WAS REPOSITIONING SELF IN BED. [facility] TRANSFER RN CALLED FOR UPDATE ON PT MEDICAL STATUS AND TO REPORT NO BEDS ARE YET AVAILABLE FOR PT TO [facility] TRANSFER TO [facility] FOR SURGERY THAT IS SCHEDULED FOR 08/19/23. PT WAS ABLE TO AMBULATE TO BATHROOM WITH SBA FWW AND TOLERATED IT WELL. PT URINE OUTPUT IS GOOD. PT IS CURRENTLY RESTING WITH BED IN LOWEST POSITION, AND CALL LIGHT WITHIN REACH.
[2023-08-15 07:54] VITALS: BP 158/106
[2023-08-15 14:59] VITALS: BP 128/71
--- NOTE | 2023-08-15 19:57 | NUR ---
SHIFT SUMMARY A&O X 4, VSS. IS PLEASANT & COOPERATIVE WITH ALL CARE. FAMILY IN THE ROOM. L GLUTEAL WOUND DRESSING CHANGE DONE PER ORDERS. IS INDEPENDENT IN THE ROOM USING A FWW. PT IS AWAITING TRANSFER TO [facility].
[2023-08-15 21:50] VITALS: BP 150/85
[2023-08-16 04:25] VITALS: BP 168/81
[2023-08-16 04:33] LABS: Source, Urine Clean Catch
[2023-08-16 04:36] LABS: Bilirubin, Urine Neg (Neg); Blood, Urine Neg (Neg); Glucose Qualitative, Urine Neg (Neg); Ketones, Urine Neg (Neg); Leukocyte Esterase, Urine Neg (Neg); Nitrite, Urine Neg (Neg); Protein, Urine Neg (Neg); Specific Gravity, Urine 1.015 (1.003-1.022); Urobilinogen, Urine NORM (Normal)
[2023-08-16 04:45] LABS: Appearance, Urine Clear (Clear); Color, Urine Yellow (P-Yellow)
[2023-08-16 05:18] VITALS: BP 145/76
--- NOTE | 2023-08-16 06:52 | NUR ---
SHIFT SUMMARY NOC PT A/O X 4. PLEASANT AND COOPERATIVE WITH CARE. NO ACUTE CHANGES TO REPORT. PT HAS REMAINED AFEBRILE. WAITING ON AM HGB/WBC FOR IMPROVEMENT. YESTERDAY PT WAS ACCEPTED AND WILL BE TRANSFERRED BY 08/17/23 [facility] FOR SURGERY ON 08/19/23 ON L HIP/BUTTOCKS WOUND. PT STILL RECEIVING IV ABX FOR ELEVATED WBC. PT ON TELE RUNNING SINUS RHYTHM @ 81 BPM. TIMO RN @ [facility] TRANSFER CENTER CALLED FOR MEDICAL UPDATE ON PT. [facility] RN SAID THAT NO BEDS WERE AVAILABLE YET. THIS RN TOLD HER THAT LATEST PROGRESS NOTE STATED THAT DR LANGLEY CALLED DR OVALLES TO INDICATED THAT PT WOULD BE TRANSFERRING ON THE FOR SURGERY ON THE , BUT TRANSFER RN REPORTED NO NOTES OR INFORMATION PERTAINING TO PT TRANSFERRING ON COULD BE FOUND, THEY ALSO STATED THAT SOMETIMES COMMUNICATION BETWEEN SURGICAL STAFF AND TRANSFER CENTER ARE NOT IN LINE. JACK SPOOLER TENDER NOTIIFIED OF COMMUNICATION UPDATE. DRESSING ON L HIP/BUTTOCK CHANGED C/D/I. PT HAS C/O OF BURNING WHILE URINATING AND UA ORDERED. PT IS CURRENTLY RESTING WITH BED IN LOWEST POSITION, AND CALL LIGHT WITHIN REACH.
[2023-08-16 07:14] LABS: BASOPHILS ABSOLUTE AUTO 0.16 K/mm3 (0.00-0.23); BASOPHILS PERCENT AUTO 1 % (0-2); EOSINOPHILS ABSOLUTE AUTO 2.57 K/mm3 (0.00-0.68); EOSINOPHILS PERCENT AUTO 9 % (0-6); Hematocrit 23.5 % (37.0-53.0); Hemoglobin 7.2 g/dL (13.5-17.5); IMMATURE GRAN ABSOLUTE AUTO 0.77 K/mm3 (0.00-0.10); IMMATURE GRAN PERCENT AUTO 3 % (0-1); LYMPHOCYTES ABSOLUTE AUTO 1.54 K/mm3 (0.84-5.20); LYMPHOCYTES PERCENT AUTO 5 % (21-46); MONOCYTES PERCENT AUTO 9 % (4-13); Mean Corpuscular HGB 23.8 pg (26.0-34.0); Mean Corpuscular HGB Conc 30.6 g/dL (31.5-36.5); Mean Corpuscular Volume 78 fL (80-100); Mean Platelet Volume 8.9 fL (9.1-12.4); NEUTROPHILS ABSOLUTE AUTO 21.48 K/mm3 (1.96-9.15); NEUTROPHILS PERCENT AUTO 74 % (41-73); Platelet Count 636 K/mm3 (150-400); RDW Coefficient Variation 17.1 % (11.7-14.2); RDW Standard Deviation 47.4 fL (35.1-46.3); Red Blood Cell Count 3.03 M/mm3 (4.30-5.90); White Blood Cell Count 29.22 K/mm3 (4.00-11.30)
[2023-08-16 07:22] VITALS: BP 136/75
[2023-08-16 07:42] LABS: Bun/Creatinine Ratio 24.8 (12.0-20.0); Calcium, Blood 7.9 mg/dL (8.5-10.1); Creatinine, Blood 0.64 mg/dL (0.60-1.20); Potassium, Blood 3.8 mmol/L (3.5-5.5)
[2023-08-16 11:26] LABS: Vancomycin, Trough 14.6 ug/mL (5.0-10.0)
[2023-08-16 15:59] VITALS: BP 146/84
--- NOTE | 2023-08-16 16:47 | NUR ---
SHIFT SUMMARY A&OX4, COOPERATIVE WITH CARE. DENIED HEADACHE, CP/PRESSURE, DIZZINESS, OR SOB THIS SHIFT. IV PLACED IN L FOREARM DUE TO THE L WRIST IV CAUSING PAIN. FAMILY IN ROOM T/O THE DAY. THEY HAVE BEEN IN CONTACT WITH NURSING [facility] AT [facility] TO COORDINATE PATIENT GETTING A ROOM. FAX NUMBER GIVEN TO FAMILY FOR [facility] TO SEND INFORMATION TO [facility]. WOUND CARE COMPLETED PER ORDERS. DRESSING WAS C/D/I DURING SHIFT. BILATERAL FEET HAVE SOFT, NONPITTING EDEMA. MEDICATED FOR PAIN TO L HIP/WOUND WITH SCHEDULED TYLENOL. PLAN IS WAITING FOR A BED AT [facility] AND [facility] TOMORROW. NO ACUTE EVENTS THIS SHIFT.
[2023-08-16 19:44] VITALS: BP 154/81
[2023-08-17 02:06] VITALS: BP 149/73
[2023-08-17 04:50] LABS: BASOPHILS ABSOLUTE AUTO 0.18 K/mm3 (0.00-0.23); BASOPHILS PERCENT AUTO 1 % (0-2); EOSINOPHILS ABSOLUTE AUTO 2.53 K/mm3 (0.00-0.68); EOSINOPHILS PERCENT AUTO 8 % (0-6); Hematocrit 23.9 % (37.0-53.0); Hemoglobin 7.2 g/dL (13.5-17.5); IMMATURE GRAN ABSOLUTE AUTO 0.74 K/mm3 (0.00-0.10); IMMATURE GRAN PERCENT AUTO 2 % (0-1); LYMPHOCYTES ABSOLUTE AUTO 1.75 K/mm3 (0.84-5.20); LYMPHOCYTES PERCENT AUTO 6 % (21-46); MONOCYTES PERCENT AUTO 9 % (4-13); Mean Corpuscular HGB 23.5 pg (26.0-34.0); Mean Corpuscular HGB Conc 30.1 g/dL (31.5-36.5); Mean Corpuscular Volume 78 fL (80-100); Mean Platelet Volume 8.8 fL (9.1-12.4); NEUTROPHILS ABSOLUTE AUTO 22.98 K/mm3 (1.96-9.15); NEUTROPHILS PERCENT AUTO 74 % (41-73); Platelet Count 694 K/mm3 (150-400); RDW Coefficient Variation 17.3 % (11.7-14.2); RDW Standard Deviation 48.1 fL (35.1-46.3); Red Blood Cell Count 3.06 M/mm3 (4.30-5.90); White Blood Cell Count 31.08 K/mm3 (4.00-11.30)
[2023-08-17 05:15] LABS: Bun/Creatinine Ratio 23.4 (12.0-20.0); Creatinine, Blood 0.68 mg/dL (0.60-1.20); Percent Saturation 4.3 % (20.0-50.0); Potassium, Blood 4.2 mmol/L (3.5-5.5)
--- NOTE | 2023-08-17 05:22 | NUR ---
SHIFT SUMMARY: PATIENT A/0X4, PLEASANT AND COOPERATIVE c CARE, USES CALL LIGHT APPROPRIATELY. PATIENT DENIES CP/PRESSURE, SOB, N/V AND DIZZINESS. PATIENT SLEPT WELL THIS SHIFT, L BUTTOCKS DRESSING CHANGED PER ORDER. PATIENT RECEIVED IV ABX AND SCHEDULED MEDS PER EMAR. PAIN WELL CONTROLLED c SCHEDULED PAIN MEDS PER EMAR. PATIENT IS CONTINENCE OF BLADDER AND USES URINAL IN BED INDEPENDENTLY. THIS RN RECEIVED A CALL FROM [facility], PER VELIA NO AVAILABLE BED AT THIS TIME. PATIENT NOTIFIED c THE UPDATE. PATIENT VERBALIZED UNDERSTANDING AND NO FURTHER QUESTIONS OR CONCERN AT THIS TIME. VITAL SIGNS REVIEWED. PIV TO L FOREARM INFUSING ABX. CALL LIGHT IN REACH.
[2023-08-17 07:19] VITALS: BP 142/79
[2023-08-17 11:19] LABS: IMMATURE RETIC FRACTION 33.1 % (2.3-16.0); RETIC HGB EQUIVALENT 18.8 pg (28.20-36.60); RETICULOCYTE ABSOLUTE 0.044 M/mm3 (0.0200-0.1100); RETICULOCYTE COUNT PERCENT 1.29 % (0.50-2.50)
[2023-08-17 11:50] LABS: Vancomycin, Trough 20.5 ug/mL (5.0-10.0)
--- NOTE | 2023-08-17 11:57 | NUR ---
CRITICAL [facility] RECEIVED @1150 OF 20.5. ATTEMPTED CALL TO RESIDENT @0892.
[2023-08-17 14:41] VITALS: BP 132/78
--- NOTE | 2023-08-17 17:06 | NUR ---
SHIFT SUMMARY: PT A&O X4. PLEASANT AND COOPERATIVE WITH CARE. NO ACUTE CHANGES WITH PT THIS SHIFT. STILL WAITING ON BED @ [facility]. HOPING TO TRANSFER TOMORROW PT IS SUPPOSED TO HAVE SEVERAL APPOINTMENTS. IV IN LFA INFILTRATED THIS AM. NEW IV PLACED BY ACE DENNIS IN RFA. RFA IV BLOWN PRIOR TO EVENING MAXIPIME. PT REFUSING POWERGLIDE DESPITE HAVING SEVERAL IV'S PLACED SINCE ADMISSION. L. BUTTOCK HEMATOMA REDRESSED THIS AFTERNOON W/O COMPLICATIONS. FAMILY AT BEDSIDE THROUGHOUT SHIFT. CALL LIGHT IN REACH. BED IN LOWEST POSITION.
[2023-08-17 20:24] VITALS: BP 162/73
[2023-08-18] VITALS (10 sets, daily range): BP systolic 118–172; BP diastolic 63–99
--- NOTE | 2023-08-18 04:04 | NUR ---
SHIFT SUMMARY PATIET HAD NO ACUTE CHANGES. NEW POWERGLIDE PLACED RU ARM. IV ABXS INFUSED. AXOX 4 AND ONE ASSIST. USES URINAL AT BEDSIDE. SCHEDULE TYLENOL GIVEN PER EMAR. DRESSING TO LEFT BUTTOCK C/D/I. VSS/AFEBRILE. FAMILY PRESENT AT SHIFT CHANGE AND NEXT FOUR HOURS. PATIENT WATCHED TV FIRST PART OF SHIFT. DENIES CHEST PAIN, SOB, AND N/V. [facility] CALLED AND REPORTS STILL WAITING ON BED AVAILABILITY. CALL LIGHT IN REACH. BED IN LOWEST POSITION. WILL CONTINUE TO MONITOR UNTIL DAY SHIFT NURSE ASSUMES CARE.
[2023-08-18 05:16] LABS: BASOPHILS ABSOLUTE AUTO 0.17 K/mm3 (0.00-0.23); BASOPHILS PERCENT AUTO 1 % (0-2); EOSINOPHILS ABSOLUTE AUTO 2.42 K/mm3 (0.00-0.68); EOSINOPHILS PERCENT AUTO 8 % (0-6); Hemoglobin 6.9 g/dL (13.5-17.5); IMMATURE GRAN ABSOLUTE AUTO 0.78 K/mm3 (0.00-0.10); IMMATURE GRAN PERCENT AUTO 3 % (0-1); LYMPHOCYTES ABSOLUTE AUTO 2.02 K/mm3 (0.84-5.20); LYMPHOCYTES PERCENT AUTO 7 % (21-46); MONOCYTES ABSOLUTE AUTO 3.03 K/mm3 (0.16-1.47); MONOCYTES PERCENT AUTO 10 % (4-13); Mean Corpuscular HGB 23.5 pg (26.0-34.0); Mean Corpuscular Volume 78 fL (80-100); Mean Platelet Volume 8.8 fL (9.1-12.4); NEUTROPHILS ABSOLUTE AUTO 20.94 K/mm3 (1.96-9.15); NEUTROPHILS PERCENT AUTO 71 % (41-73); Platelet Count 692 K/mm3 (150-400); RDW Coefficient Variation 17.2 % (11.7-14.2); RDW Standard Deviation 48.5 fL (35.1-46.3); Red Blood Cell Count 2.94 M/mm3 (4.30-5.90); White Blood Cell Count 29.36 K/mm3 (4.00-11.30)
[2023-08-18 05:33] LABS: Calcium, Blood 7.7 mg/dL (8.5-10.1); Creatinine, Blood 0.65 mg/dL (0.60-1.20)
--- NOTE | 2023-08-18 06:26 | NUR ---
PATIENT HgB 6.[address] JARVIS ORDERED ONE UNIT OF PRBC.
--- NOTE | 2023-08-18 06:38 | NUR ---
BP 172/99 AND IV APRESOLINE 10 MG GIVEN FOR SBP >160 BP 157/88 ON RECHECK.
--- NOTE | 2023-08-18 18:37 | NUR ---
PT WAS TRANSFERED TO [facility] VIA TRANSPORT. REPORT CALLED TO BISHNU BELLO. PT LEFT UNIT VIA GURNEY.
== END 2023-08-18 18:28 | disposition short-term general hospital (02) | DRG 872 ==
LOC: ER 12:00 → MEDS 16:47
PROVIDERS: Emergency Medicine; Family Medicine; Student in an Organized Health Care Education/Training Program; ADMIT Internal Medicine
PROC: 30233N1 Transfusion of Nonautologous Red Blood Cells into Peripheral Vein, Percutaneous Approach (ICD-10-PCS; principal; 2023-08-11)
PROC: 3E03329 Introduction of Other Anti-infective into Peripheral Vein, Percutaneous Approach (ICD-10-PCS; 2023-08-11)
DX: A41.01 Sepsis due to Methicillin susceptible Staphylococcus aureus (principal); I50.32 Chronic diastolic (congestive) heart failure; C49.5 Malignant neoplasm of connective and soft tissue of pelvis; E87.20 Acidosis, unspecified; D62 Acute posthemorrhagic anemia; C79.51 Secondary malignant neoplasm of bone; A41.81 Sepsis due to Enterococcus; R65.20 Severe sepsis without septic shock; I11.0 Hypertensive heart disease with heart failure; I48.0 Paroxysmal atrial fibrillation; Z11.52 Encounter for screening for COVID-19; Z79.899 Other long term (current) drug therapy; Z88.5 Allergy status to narcotic agent
CPT/HCPCS: 0241U; 36415; 36430; 80048; 80053; 80202; 81001; 81003; 82270; 82607; 82728; 82746; 83540; 83550; 83605; 83735; 84145; 85014; 85018; 85025; 85045; 85651; 86140; 86850; 86900; 86901; 86920; 86923; 87040; 87070; 87075; 87077; 87147; 87186; 87205; 93005; 93010; 96361; 96365; 96366; 96367; 96368; 96375; 96376; 97165; 97530; 99285-25; A9270; C1751; C9113; G0378; J0360; J0692; J0696; J1650; J3370; J7030; J7050; P9016

== ENCOUNTER → 2023-09-16 | Outpatient (CLI) | payer MEDICARE ==
[~2023-09-16] MED LIST changes: +IMIP25 PO; +OXYB5 PO
[2023-09-16 10:30] LABS: Source, Urine Clean Catch
[2023-09-16 12:33] LABS: Appearance, Urine Hazy (Clear); Bilirubin, Urine Neg (Neg); Blood, Urine 3+ (Neg); Color, Urine Yellow (P-Yellow); Glucose Qualitative, Urine Neg (Neg); Ketones, Urine Neg (Neg); Leukocyte Esterase, Urine 3+ (Neg); Nitrite, Urine Pos (Neg); Protein, Urine 2+ (Neg); Urobilinogen, Urine NORM (Normal)
[2023-09-16 12:47] LABS: Bacteria Many /hpf; Squamous Epithelial Cells Few /hpf (Few); White Blood Cells, Urine 50-100 /hpf (0-5)
[2023-09-16 12:48] LABS: Mucus Light (0-Heavy)
== END | disposition home or self-care (01) ==
LOC: LAB 10:28 → LAB SHORT 10:28
PROVIDERS: Family Medicine
DX: N39.0 Urinary tract infection, site not specified (principal)
CPT/HCPCS: 81001; 87077; 87086; 87186

== ENCOUNTER 2023-10-16 09:17 | Inpatient (IN) | payer MEDICARE ==
[~2023-10-16] VITALS: Ht 180.3 cm; Wt 99.3 kg
[2023-10-16 11:27] LABS: BASOPHILS ABSOLUTE AUTO 0.07 K/mm3 (0.00-0.23); BASOPHILS PERCENT AUTO 0 % (0-2); EOSINOPHILS ABSOLUTE AUTO 0.13 K/mm3 (0.00-0.68); EOSINOPHILS PERCENT AUTO 1 % (0-6); Hemoglobin 10.5 g/dL (13.5-17.5); IMMATURE GRAN ABSOLUTE AUTO 0.23 K/mm3 (0.00-0.10); IMMATURE GRAN PERCENT AUTO 2 % (0-1); LYMPHOCYTES ABSOLUTE AUTO 0.81 K/mm3 (0.84-5.20); LYMPHOCYTES PERCENT AUTO 5 % (21-46); MONOCYTES ABSOLUTE AUTO 1.74 K/mm3 (0.16-1.47); MONOCYTES PERCENT AUTO 11 % (4-13); Mean Corpuscular Volume 77 fL (80-100); Mean Platelet Volume 9.5 fL (9.1-12.4); NEUTROPHILS ABSOLUTE AUTO 12.86 K/mm3 (1.96-9.15); NEUTROPHILS PERCENT AUTO 81 % (41-73); Platelet Count 268 K/mm3 (150-400); RDW Coefficient Variation 17.5 % (11.7-14.2); RDW Standard Deviation 48.5 fL (35.1-46.3); Red Blood Cell Count 4.57 M/mm3 (4.30-5.90); White Blood Cell Count 15.84 K/mm3 (4.00-11.30)
[2023-10-16] MEDS ORDERED: OxyCODONE HCL 5 MG TAB PO ONE (11:50)
[2023-10-16] MEDS ORDERED: Ibuprofen 400 MG Tab PO ONE (11:50)
[2023-10-16 11:51] LABS: Albumin, Blood 2.8 g/dL (3.4-5.0); Albumin/Globulin Ratio 0.6 (0.8-1.8); Bilirubin, Total 0.3 mg/dL (0.1-1.0); Calcium, Blood 9.1 mg/dL (8.5-10.1); Creatinine, Blood 0.83 mg/dL (0.60-1.20); Globulin, Blood 4.6 g/dL (2.2-4.0); Total Protein, Blood 7.4 g/dL (6.4-8.2)
[2023-10-16 12:03] LABS: Influenza A, PCR NEGATIVE (NEGATIVE); Influenza B, PCR NEGATIVE (NEGATIVE); Resp Syncytial Virus, PCR NEGATIVE (NEGATIVE); SARS-Cov-2 (COVID-19) PCR, MMC NEGATIVE (NEGATIVE)
[2023-10-16 14:06] LABS: Source, Urine Clean Catch
[2023-10-16 14:13] LABS: Appearance, Urine Clear (Clear); Bilirubin, Urine Neg (Neg); Blood, Urine Neg (Neg); Color, Urine Yellow (P-Yellow); Glucose Qualitative, Urine Neg (Neg); Ketones, Urine 1+ (Neg); Leukocyte Esterase, Urine Neg (Neg); Nitrite, Urine Neg (Neg); Protein, Urine Neg (Neg); Specific Gravity, Urine 1.015 (1.003-1.022); Urobilinogen, Urine NORM (Normal)
[2023-10-16 14:21] LABS: International Normalized Ratio 1.13; Prothrombin Time Results 11.8 Sec (9.7-11.5)
[2023-10-16] MEDS ORDERED: Acetaminophen 325 MG TABLET PO PRN (14:30)
[2023-10-16] MEDS ORDERED: FLU VACC QS2023-24(6MOS UP)/PF 60 MCG/0.5 ML SYRINGE IM PRN (14:30)
[2023-10-16] MEDS ORDERED: Dose Adjust by Pharmacy XX STA ×2 (14:30→22:32)
[2023-10-16] MEDS ORDERED: Heparin Sodium 5000 Units/ML 1ML MDV IV ONE ×2 (14:35→22:35)
[2023-10-16] MEDS ORDERED: Heparin Sodium,Porcine/0.5 NS 500 ML IV SCH (14:35)
[2023-10-16] MEDS ORDERED: OxyCODONE HCL 5 MG TAB PO PRN (14:40)
[2023-10-16 16:00] VITALS: BP 133/88
[2023-10-16] MEDS ORDERED: OXAYDO5 M3 PO (16:04)
[2023-10-16] MEDS ORDERED: ACET500 PO (16:07)
[2023-10-16 16:30] VITALS: BP 125/79
[2023-10-16 17:00] VITALS: BP 127/92
[2023-10-16 18:00] VITALS: BP 117/78
--- NOTE | 2023-10-16 18:58 | NUR ---
NO CHANGE FROM SHIFT ASSESSMENT, DENIES CHEST PAIN PRESSURE OR SOB AT REST. MINOR DYSPNEA WITH REPOSITIONING, DECREAESED ABILITY TO EXERT SELF, BUT IS IMPROVING. HEPARIN IS INFUSING SAME RATE ON ADMIT WAS VERIFIED WITH EQUINE MANAGER AND ER NURSE. PATIENT PAIN CONTROLED PER OCT. GREATER THAN 1.5 HOURS OF EDUCATION THORUGHOUT THE SHIFT GIVEN, ONLY CONCERN IS LLE BEING MILDLY INCREASED IN SIZE, IMPROVED DRAMATICALLY WITH ELEVATION. NO US, AND UNSURE OF ECHO STATUS. PATIENT R AC IV IS STILL INFUSING. PATIENT APPETITE IMPROVING. BLOOD PRESSURE NORMOTENSIVE AFEBRILE VSS. RR INCREASEED WITH EXERTION, BUT AT REST <20. NO FURHTER CONCERNS NOTED.
[2023-10-16 19:38] VITALS: BP 129/87
--- NOTE | 2023-10-16 20:00 | NUR ---
ASSUMPTION OF CARE: THIS RN ASSUMED CARE OF PT AT APPROX 1900, BEDSIDE REPORT FROM JANAY BELLO. PT ALERT, ORIENTED X4. SITTING UP IN BED, CONVERSANT W/ STAFF. ABLE TO COMMUNICATE NEEDS AND CALL APPROPRIATELY. HR 80-90'S, SINUS ON TELE. BP STABLE, DENIES CHEST PAIN/PRESSURE. SPO2 >90% ON 3.5L VIA NC. RR 16-22 AT REST, UP TO 30'S W/ ANY EXERTION. AFEBRILE. HEPARIN GTT INFUSING PER EMAR, BEING MANAGEED BY PHARMACY. C/O BACK PAIN DUE TO RECENT SURGERY, MEDICATED PER EMAR. ASSISTED W/ REPOSITIONING FOR COMFORT WELL. VOIDING IN URINAL W/ ASSISTANCE. CALL LIGHT IN REACH.
[2023-10-16] MEDS ORDERED: CloNIDine 0.1 MG Tab PO SCH (21:00)
[2023-10-16] MEDS ORDERED: Cephalexin Monohydrate 500 MG Cap PO SCH (21:00)
[2023-10-16] MEDS ORDERED: Sennosides 8.6 MG Tab PO SCH (21:00)
[2023-10-16 23:25] VITALS: BP 132/90
[2023-10-17 03:50] VITALS: BP 150/80
[2023-10-17 05:09] LABS: BASOPHILS ABSOLUTE AUTO 0.09 K/mm3 (0.00-0.23); BASOPHILS PERCENT AUTO 1 % (0-2); EOSINOPHILS ABSOLUTE AUTO 0.76 K/mm3 (0.00-0.68); EOSINOPHILS PERCENT AUTO 5 % (0-6); Hematocrit 31.2 % (37.0-53.0); Hemoglobin 9.2 g/dL (13.5-17.5); IMMATURE GRAN ABSOLUTE AUTO 0.12 K/mm3 (0.00-0.10); IMMATURE GRAN PERCENT AUTO 1 % (0-1); LYMPHOCYTES ABSOLUTE AUTO 1.89 K/mm3 (0.84-5.20); LYMPHOCYTES PERCENT AUTO 12 % (21-46); MONOCYTES ABSOLUTE AUTO 1.69 K/mm3 (0.16-1.47); MONOCYTES PERCENT AUTO 11 % (4-13); Mean Corpuscular HGB 22.9 pg (26.0-34.0); Mean Corpuscular HGB Conc 29.5 g/dL (31.5-36.5); Mean Corpuscular Volume 78 fL (80-100); Mean Platelet Volume 9.4 fL (9.1-12.4); NEUTROPHILS ABSOLUTE AUTO 10.91 K/mm3 (1.96-9.15); NEUTROPHILS PERCENT AUTO 71 % (41-73); Platelet Count 232 K/mm3 (150-400); RDW Coefficient Variation 17.5 % (11.7-14.2); RDW Standard Deviation 49.4 fL (35.1-46.3); Red Blood Cell Count 4.01 M/mm3 (4.30-5.90); White Blood Cell Count 15.46 K/mm3 (4.00-11.30)
--- NOTE | 2023-10-17 05:11 | NUR ---
END OF SHIFT NOTE: NO ACUTE EVENTS FOLLOWING ASSUMPTION OF CARE. VITAL SIGNS REMAIN STABLE; HR 80-90'S ON TELE, NSR. BP STABLE, DENIES CHEST PAIN/PRESSURE. SPO2 >90% ON 3-4L NC WHILE AT REST, 6L W/ EXERTION. RR 18-20 AT REST, 20-30'S W/ MOVEMENT. AFEBRILE. HEPARIN GTT INFUSING AT 20 U/KG/HR PER PHARMACY ORDERS, 1 HEPARIN BOLUS ADMINISTERED PER ORDERS. ABLE TO STAND AT BEDSIDE TO VOID IN URINAL, OTHERWISE HAS BEEN ON BEDREST. NO BM'S. REPOSITIONING INDEPENDENTLY. C/O PAIN IN BACK/HIP AT AREA OF PREVIOUS INCISION, MEDICATED PER EMAR W/ RELIEF. NO OTHER NEEDS AT THIS TIME. CALL LIGHT IN REACH, WILL REPORT TO ONCOMING RN.
[2023-10-17 05:35] LABS: Albumin, Blood 2.5 g/dL (3.4-5.0); Albumin/Globulin Ratio 0.6 (0.8-1.8); Bilirubin, Total 0.3 mg/dL (0.1-1.0); Bun/Creatinine Ratio 30.3 (12.0-20.0); Calcium, Blood 8.9 mg/dL (8.5-10.1); Creatinine, Blood 0.73 mg/dL (0.60-1.20); Globulin, Blood 4.3 g/dL (2.2-4.0); Total Protein, Blood 6.8 g/dL (6.4-8.2)
[2023-10-17] MEDS ORDERED: Dose Adjust by Pharmacy XX STA ×2 (06:46→14:09)
[2023-10-17] MEDS ORDERED: Heparin Sodium 5000 Units/ML 1ML MDV IV ONE ×2 (06:50→14:10)
[2023-10-17 07:33] VITALS: BP 150/97
--- NOTE | 2023-10-17 07:42 | NUR ---
ASSUMPTION OF CARE: PATIENT IS ALERT AND ORIENTED X 4, IS EXTREMELY DYSPNIC WITH EXERTION, PULSE RATE INCREASES UPTO THE 150'S JUST STANDING WITH URINAL AT BEDSIDE, WILL EDUCATE AT BSC EVEN FOR URINAL TO ALLIVIATE WOB AND STRESS ON HEART AND LUNGS. PATIENT DOES RECOVERY FAIRLY QUICKLY, DENIES CHEST PAIN PRESSURE OR SOB AT THIS TIME, CHRONIC PAIN AT SURGICAL SITE, ENCOURAGED Q 2 REPOSITIONS, IS ON 3-6 L DEPENDING ON EXERTION. HAS BEEN COOPERATIVE PLEASANT, EDUCATED APPROXIMATELY 30 MINUTES TODAY ON CONDITION AND STATUS.
[2023-10-17] MEDS ORDERED: Furosemide 40 MG Tab PO SCH (09:00)
[2023-10-17] MEDS ORDERED: Potassium Chloride 20 MEQ TabCR PO SCH (09:00)
[2023-10-17] MEDS ORDERED: Metoprolol Succinate 50 MG TABCR PO SCH (09:00)
[2023-10-17] MEDS ORDERED: Diltiazem HCl 180 MG Cap.CD PO SCH (09:00)
[2023-10-17 11:15] VITALS: BP 130/80
[2023-10-17] MEDS ORDERED: Gabapentin 100 MG Cap PO SCH (12:00)
[2023-10-17] MEDS ORDERED: CefTRIAXone Sodium 1,000 MG in NS 50 ML IV SCH (14:00)
[2023-10-17] MEDS ORDERED: NS 250 ML IV PRN (14:05)
[2023-10-17 17:05] VITALS: BP 127/91
--- NOTE | 2023-10-17 17:39 | NUR ---
PATIENT WILL BE GOING TO SWITCHED FROM HEPARIN TO XERALTO. PATIENT 3-L STILL, IMPROVED HEARTATE WITH USING BSC FOR TOILETING. IMPROVED PAIN CONTROLL ON 10mg OF OXYCODONE AND GABAPENTIN. PATIENT HAS BEEN COOPERATIVE WITH CARE, DENIES CHEST PAIN AND INCREASED SOB AT REST. PATIENT WOB IMPROVED WITH PAIN MANAGEMENT. IV ABX ON BOARD. VSS AFEBRILE AT THIS TIME, STILL EXERTIONAL TACHACARDIA, AND DYSPNEA. PATIENT USES CALL LIGHT APPROPRIATELY. ECHO OBTAINED, NO ACUTE CONCERNS AT THIS TIME.
--- NOTE | 2023-10-17 17:47 | NUR ---
HEPARIN ON STANDBY: HEPARIN STOPPED AT TIME OF XERALTO PER PHARMACY. PATIENT GIVEN AN APPROPRIATE AMOUNT FOOD WITH XERALTO, EDUCATED THOUROUGHLY. NO CONCERNS FROM EITHER SELF OR PATIENT.
[2023-10-17] MEDS ORDERED: Rivaroxaban 10 MG Tab PO SCH (18:00)
[2023-10-17 18:54] VITALS: BP 122/88
--- NOTE | 2023-10-17 20:00 | NUR ---
ASSUMPTION OF CARE: THIS RN ASSUMED CARE OF PT AT APPROX 1900. PT ALERT, ORIENTED X4. ABLE TO COMMUNICATE NEEDS W/ STAFF. HR 80'S AT REST, UP TO 150'S BRIEFLY W/ EXERTION. SBP 120'S, DENIES CHEST PAIN/PRESSURE. SPO2 >90% ON 3L NC, UP TO 6L W/ EXERTION. LUNG SOUNDS CLEAR, DIM IN RLL. AFEBRILE. PT REPORTS ADEQUATE PAIN MANAGEMENT W/ OXYCODONE & GABAPENTIN, STATES HE HAS NOTICED SIGNIFICANT IMPROVEMENT W/ ADDITION OF GABAPENTIN. PT REQUESTED PM MEDICATIONS BE ADMINISTERED SLIGHTLY EARLY AT 1930 DUE TO TAKING THESE MEDICAITONS AT HOME BETWEEN 183 AND 1929 NORMALLY; CLINICAL JUDGEMENT UTILIZED. NO FURTHER NEEDS AT THIS TIME, CALL LIGHT IN REACH.
[2023-10-17 23:28] VITALS: BP 108/78
[2023-10-18] VITALS (7 sets, daily range): BP systolic 127–141; BP diastolic 85–95
[2023-10-18 04:09] LABS: BASOPHILS ABSOLUTE AUTO 0.06 K/mm3 (0.00-0.23); BASOPHILS PERCENT AUTO 0 % (0-2); EOSINOPHILS ABSOLUTE AUTO 0.79 K/mm3 (0.00-0.68); EOSINOPHILS PERCENT AUTO 6 % (0-6); Hematocrit 30.3 % (37.0-53.0); IMMATURE GRAN ABSOLUTE AUTO 0.12 K/mm3 (0.00-0.10); IMMATURE GRAN PERCENT AUTO 1 % (0-1); LYMPHOCYTES ABSOLUTE AUTO 1.65 K/mm3 (0.84-5.20); LYMPHOCYTES PERCENT AUTO 12 % (21-46); MONOCYTES ABSOLUTE AUTO 1.77 K/mm3 (0.16-1.47); MONOCYTES PERCENT AUTO 12 % (4-13); Mean Corpuscular HGB 22.7 pg (26.0-34.0); Mean Corpuscular HGB Conc 29.7 g/dL (31.5-36.5); Mean Corpuscular Volume 77 fL (80-100); Mean Platelet Volume 9.8 fL (9.1-12.4); NEUTROPHILS ABSOLUTE AUTO 9.93 K/mm3 (1.96-9.15); NEUTROPHILS PERCENT AUTO 69 % (41-73); Platelet Count 248 K/mm3 (150-400); RDW Coefficient Variation 17.3 % (11.7-14.2); RDW Standard Deviation 47.9 fL (35.1-46.3); Red Blood Cell Count 3.96 M/mm3 (4.30-5.90); White Blood Cell Count 14.32 K/mm3 (4.00-11.30)
[2023-10-18 04:23] LABS: Bun/Creatinine Ratio 30.4 (12.0-20.0); Calcium, Blood 8.5 mg/dL (8.5-10.1); Creatinine, Blood 0.63 mg/dL (0.60-1.20)
--- NOTE | 2023-10-18 05:06 | NUR ---
END OF SHIFT NOTE: NO ACUTE RESPIRATORY EVENTS OVERNIGHT. PT TITRATED FROM 3L TO 2L VIA NC WHILE AT REST W/ SPO2 >90%. REQUIRED 3L W/ EXERTION THIS AM COMPARED TO 6L AT START OF SHIFT. HR 80'S AT REST, UP TO 110'S W/ EXERTION. BP STABLE. PT HAS REMAINED A/OX4, ALTHOUGH SEEMS SLIGHTLY MORE CONFUSED THAN PREVIOUS NOC SHIFT. FREQUENTLY REPEATING THE SAME QUESTION AND DOES NOT RECALL PREVIOUS DISCUSSIONS SURROUNDING THESE QUESTIONS. PT IS ALSO DEMONSTRATING A MORE FLAT AFFECT W/ VISIBLE IRRITATION AT TIMES. REMAINS COOPERATIVE W/ CARE. PAIN MANAGED PER EMAR & W/ REPOSITIONING. ABLE TO VOID IN URINAL, HR TOUCHES 110'S WITH THIS. NO BM'S. NO OTHER NEEDS AT THIS TIME, CALL LIGHT IN REACH. WILL REPORT TO ONCOMING RN.
--- NOTE | 2023-10-18 07:15 | NUR ---
ASSUMPTION OF CARE: PATIENT IS ALERT AND ORIENTED X 4 PLEASANT COOPERATIVE WITH CARE, NO ACUTE CONCERNS, PATIENT OVERALL APPEARS TO BE IMPROVING BETTER WITH THE XERALTO VERSUS HEPARIN, PATIENT HAS HAD MUCH IMPROVED PAIN MANAGEMENT WITH GABEPENTIN ON BOARD. PATIENT IS MILDLY ANXIOUS, ECHO RESULTS ARE COMPLETE PLEASE SEE RESULTS. PATIENT DENIES CHEST PAIN PRESSURE OR SOB.
[2023-10-18] MEDS ORDERED: Iron Dextran 25 MG in NS 50 ML IV ONE (13:00)
[2023-10-18] MEDS ORDERED: Iron Dextran 975 MG in NS 250 ML IV ONE (14:30)
--- NOTE | 2023-10-18 18:38 | NUR ---
EOS: NO ACUTE CHANGES FROM PREVIOUS SHIFT, MINIMALLY BETTER, DID HAVE 2 EPISODES OF TACHACARDIA AFTER DEXTRAN PROVIDER AWARE. STILL CONTINUED FULL INFUSION. PATIENT TOLERATED WELL WITH NO CONCERNS. PATIENT DENIES CHETS PAIN PRESSURE OR SOB. PATIENT HAS BEEN COOPERATIVE PLEASANT WITH CARE, DOES BECOME RATHER IRRITABLE WITH PAIN, PAIN UNDER CONTROL WITH Q4 ADMINISTRATION OF OXYCODONE AND NEW GABAPENTIN TID. PATIENT WAS ABLE TO WORK WITH PT, AMBULATE TO THE BATHROOM ON 7L VIA NC WITH 1 P AND FWW GB. PATIENT HAS BEEN COOPERATIVE WITH CALLING PRIOR TO TOILETING TO BS, OR STANDING FOR URINAL, HOWEVER, WOULD RECOMMEND BED ALARM TO NIGHT FAMILY WILL NOT BE IN THE ROOM. PATIENT HAS BEEN SLIGHLTY IMPROVED. STILL REQUIRING INCREASED OXYGEN REQUIREMENT WITH EXERTION, AND PATIENT HIMSELF WOULD LIKE ANOTHER 24 HOURS AT A MINIMUM BEFORE DISCHARGE. NO OTHER CONCERNS OR QUESTIONS FROM THIS RN AT THIS TIME.
[2023-10-19 00:22] VITALS: BP 154/88
[2023-10-19 03:48] VITALS: BP 149/90
[2023-10-19 04:04] LABS: BASOPHILS ABSOLUTE AUTO 0.08 K/mm3 (0.00-0.23); BASOPHILS PERCENT AUTO 1 % (0-2); EOSINOPHILS ABSOLUTE AUTO 1.01 K/mm3 (0.00-0.68); EOSINOPHILS PERCENT AUTO 7 % (0-6); Hematocrit 29.5 % (37.0-53.0); IMMATURE GRAN ABSOLUTE AUTO 0.22 K/mm3 (0.00-0.10); IMMATURE GRAN PERCENT AUTO 2 % (0-1); LYMPHOCYTES ABSOLUTE AUTO 1.82 K/mm3 (0.84-5.20); LYMPHOCYTES PERCENT AUTO 12 % (21-46); MONOCYTES ABSOLUTE AUTO 1.66 K/mm3 (0.16-1.47); MONOCYTES PERCENT AUTO 11 % (4-13); Mean Corpuscular HGB 23.2 pg (26.0-34.0); Mean Corpuscular HGB Conc 30.5 g/dL (31.5-36.5); Mean Corpuscular Volume 76 fL (80-100); Mean Platelet Volume 9.6 fL (9.1-12.4); NEUTROPHILS ABSOLUTE AUTO 10.02 K/mm3 (1.96-9.15); NEUTROPHILS PERCENT AUTO 68 % (41-73); Platelet Count 269 K/mm3 (150-400); RDW Coefficient Variation 17.2 % (11.7-14.2); RDW Standard Deviation 47.5 fL (35.1-46.3); Red Blood Cell Count 3.88 M/mm3 (4.30-5.90); White Blood Cell Count 14.81 K/mm3 (4.00-11.30)
[2023-10-19 04:27] LABS: Bun/Creatinine Ratio 29.3 (12.0-20.0); Calcium, Blood 8.3 mg/dL (8.5-10.1); Creatinine, Blood 0.65 mg/dL (0.60-1.20); Potassium, Blood 3.9 mmol/L (3.5-5.5)
--- NOTE | 2023-10-19 06:03 | NUR ---
END OF SHIFT NOTE: NO ACUTE EVENTS OVERNIGHT. PT HAS REMAINED ALERT, ORIENTED X4. CALLS APPROPRIATELY & COMMUNICATES NEEDS W/ STAFF. HR 80'S, SINUS ON TELE. SBP 130-150'S, DENIES CHEST PAIN/PRESSURE. SPO2 >90% ON NC; TITRATED TO 2L WHILE AT REST, UP TO 6L W/ EXERTION. LUNG SOUNDS CLEAR T/O, SLIGHTLY DIM ON RLL. AFEBRILE. PT REPORTS FEELING MUCH MORE URINARY URGENCY THIS SHIFT, MULTIPLE ATTEMPTS TO USE URINAL BUT UNABLE TO POSITION URINAL PRIOR TO VOID DUE TO URGENCY. CONDOM CATH PLACED FOR PT COMFORT OVERNIGHT, DRAINING YELLOW URINE TO GRAVITY. NO BM'S. C/O MILD-MODERATE PAIN TO BACK/HIP/SHOULDER, MEDICATED PER EMAR W/ REPORTED RELIEF. NO OTHER NEEDS AT THIS TIME. CALL LIGHT IN REACH, BED IN LOWEST POSITION. WILL REPORT TO ONCOMING RN.
[2023-10-19 09:55] VITALS: BP 153/88
[2023-10-19] MEDS ORDERED: Tamsulosin HCl 0.4 MG Cap PO SCH (10:40)
[2023-10-19 12:47] VITALS: BP 126/84
[2023-10-19 16:48] VITALS: BP 139/89
--- NOTE | 2023-10-19 18:52 | NUR ---
ASSUMED CARE OF PT AT 0700 THIS AM. PT MEDICATED FOR PAIN T/O THE DAY PER EMAR. DR ROLAND TURNED PT'S O2 OFF TO SEE HOW HE DID ON RA, SP02 >95% AT REST BUT DROPPED INTO THE MID 80s W EXERTION. 2L 02 VIA NC PLACED BACK ON PT. NO ACUTE EVENTS T/O THE DAY, PT IS NOW MEDICAL NON TELE STATUS. VS STABLE. PT FAMILY VISITING TODAY AND UPDATED ON PLAN OF CARE. PT IS AGREABLE TO GO SNF, AWAITING INSURACE AUTH. PT WORKED WITH PT TODAY, RECOMMENDATION WAS SNF. PT ABLE TO USE CALL LIGHT, CALL LIGHT IN REACH. WILL CONTINUE TO MONITOR AND GIVE REPORT TO NOC SHIFT RN.
--- NOTE | 2023-10-19 19:15 | NUR ---
ASSUMPTION OF CARE RECEIVED INTO CARE BEDSIDE REPORT GIVEN BY DAY RN. PT AWAKE AND ALERT LYING IN BED. ON 1.5L NC, SPO2>95%. NO VOICED CONCERNS AT THIS TIME IS COMFORTABLE. CALL GUARDADO IN REACH. SEE SHIFT ASSESSMENT FOR FURTHER DETAILS.
[2023-10-19 21:00] VITALS: BP 146/94
[2023-10-20 03:12] VITALS: BP 173/99
[2023-10-20 05:26] LABS: BASOPHILS ABSOLUTE AUTO 0.07 K/mm3 (0.00-0.23); BASOPHILS PERCENT AUTO 1 % (0-2); EOSINOPHILS ABSOLUTE AUTO 0.98 K/mm3 (0.00-0.68); EOSINOPHILS PERCENT AUTO 7 % (0-6); Hematocrit 29.2 % (37.0-53.0); Hemoglobin 8.7 g/dL (13.5-17.5); IMMATURE GRAN ABSOLUTE AUTO 0.35 K/mm3 (0.00-0.10); IMMATURE GRAN PERCENT AUTO 2 % (0-1); LYMPHOCYTES ABSOLUTE AUTO 1.34 K/mm3 (0.84-5.20); LYMPHOCYTES PERCENT AUTO 9 % (21-46); MONOCYTES ABSOLUTE AUTO 1.51 K/mm3 (0.16-1.47); MONOCYTES PERCENT AUTO 10 % (4-13); Mean Corpuscular HGB 22.8 pg (26.0-34.0); Mean Corpuscular HGB Conc 29.8 g/dL (31.5-36.5); Mean Corpuscular Volume 76 fL (80-100); Mean Platelet Volume 9.5 fL (9.1-12.4); NEUTROPHILS PERCENT AUTO 72 % (41-73); Platelet Count 299 K/mm3 (150-400); RDW Coefficient Variation 17.2 % (11.7-14.2); RDW Standard Deviation 47.5 fL (35.1-46.3); Red Blood Cell Count 3.82 M/mm3 (4.30-5.90); White Blood Cell Count 15.05 K/mm3 (4.00-11.30)
--- NOTE | 2023-10-20 06:06 | NUR ---
SHIFT SUMMARY ALERT AND ORIENTED X4. ANALGESIC GIVEN X2 FOR SHOULDER AND BACK PAIN, LEFT SHOULDER FROZEN. VSS. BECOMES SOB ON EXERTION. DESATS TO 85% ON RA. SPO2>95% ON 2L NC. USING URINALS TO VOID. SLEPT OFF AND ON THROUGHOUT NIGHT. NO VOICED CONCERNS AT THIS TIME. REMAINS LYING IN BED WITH EYES CLOSED, APPEARS COMFORTABLE/NO DISTRESS. CALL GUARDADO IN REACH.
[2023-10-20 06:17] VITALS: BP 148/102
[2023-10-20 06:37] LABS: Bun/Creatinine Ratio 28.8 (12.0-20.0); Calcium, Blood 8.8 mg/dL (8.5-10.1); Creatinine, Blood 0.59 mg/dL (0.60-1.20); Potassium, Blood 4.1 mmol/L (3.5-5.5)
[2023-10-20 07:17] VITALS: BP 164/92
[2023-10-20 16:47] VITALS: BP 151/92
--- NOTE | 2023-10-20 17:02 | NUR ---
SHIFT SUMMARY PT AOX4 CALLS APPROPRIATELY AND OBEYS COMMANDS. PT DENIES CHEST PAIN/PRESSURE. SPO2>92% ON 2L VIA NC. BREATHING EVEN AND UNLABORED WHILE RESTING. PT REPORTS SOB WITH EXERTION NADN. PT REPOSITIONS INDEPENDENTLY IN BED. PT ABLE TO AMBULATE USING FWW AND STANDBY ASSIST TO BATHROOM. PT MEDICATED FOR L SHOULDER PAIN PER EMAR. PT DAUGHTERS AT BEDSIDE T/O DAY. CALL LIGHT IN REACH. NO ACUTE CHANGES.
[2023-10-20 19:57] VITALS: BP 142/84
[2023-10-21 04:17] VITALS: BP 145/90
[2023-10-21 05:06] LABS: Source, Urine Clean Catch
[2023-10-21 05:32] LABS: Appearance, Urine Clear (Clear); Bilirubin, Urine Neg (Neg); Blood, Urine Neg (Neg); Color, Urine Yellow (P-Yellow); Glucose Qualitative, Urine Neg (Neg); Ketones, Urine Neg (Neg); Leukocyte Esterase, Urine Neg (Neg); Nitrite, Urine Neg (Neg); Protein, Urine Neg (Neg); Urobilinogen, Urine NORM (Normal); pH, Urine 6.5 (5.0-8.0)
--- NOTE | 2023-10-21 05:49 | NUR ---
PT SUMMARY: PT ALERTA AND ORIENTED X3-4 FORGETFUL AT TIMES, VITALS HRR 70-80'S, SBP 140'S, SATS ABOVE 93% ON 2L OF O2, AFEBRILE. PT HAS SOB WITH EXERTION, 1PA TO TRANSFER TO [facility], PT HAS BEEN USING URINAL MOST OF THE SHIFT. AT CLOSE TO THE END OF SHIFT PT S/O URGENCY TO PEE WITH SMALL AMOUNTS OF URINE EACH TIME ALSO HAS FEELING OF BURNING SENSATION, CALLED PROVIDER AND GOT AN ORDER FOR UA, ALSO PT WAS BLADDER SCANNED AND HAS 597MLS URINE RETAINED, PT WAS STRAIGHT CATH PER PROTOCOL HAD 570MLS OUT, URINE YELLOW IN COLOR, UA SENT TO LAB, AWAITING FOR RESULT AT THIS TIME. PT WAS MEDICATED TWICE FOR LEFT SHOULDER AND BACK PAIN. REPOSITIONED IN BED FOR COMFORT. PT HAS BEEN CALLING APPROPRIATELY. NO OTHER ISSUES REPORTED FOR THE SHIFT, WILL REPORT TO ONCOMING SHIFT
[2023-10-21 07:20] VITALS: BP 153/92
[2023-10-21 12:28] VITALS: BP 122/84
[2023-10-21 15:53] VITALS: BP 131/84
--- NOTE | 2023-10-21 16:34 | NUR ---
SHIFT SUMMARY: PT HAS BEEN A&Ox4, EXCEPT ONE TIME TODAY WHEN HE WAS WOKEN FROM A NAP. DURING THIS TIME THE PT DECLINED TO WORK WITH PT AND TALKED ABOUT FEELING DISORIENTED. AFTER PT BECAME MORE ALERT HE WAS ABLE TO ANSWER ORIENTATION QUESTIONS AND RECALLED FEELING DISORIENTED AT THE TIME. NO OTHER EVENTS NOTED. PT HAS DENIED SOB, O2 SATS MAINTAINED >92% ON RA WHILE AWAKE AND 2 L/MIN WHEN RESTING. PT ALSO DENIES CP, VSS. PRN PAIN MEDICATION IN PLACE FOR PAIN TO L SHOULDER AND L HIP/BACK. PER REPORT FROM NOC SHIFT RN, PT REQUIRED STRAIGHT CATH x1 FOR RETENTION. EARLIER THIS SHIFT, POST VOID BLADDER SCAN SHOWED 417, BUT THEN PT VOIDED 2 MORE TIMES CLOSE TOGETHER IN TIMEFRAME, REPEAT BLADDER SCAN WAS <400ML, NO CATHETERIZATION. ANOTHER POST VOID BLADDER SCAN SHOWED RESIDUAL OF 298ML, NO CATHETERIZATION. PT HAD SHOWER TODAY. AT THIS TIME, PLAN IS FOR PT TO DC HOME TOMORROW (10/22/23) W/HOME HEALTH AND INTENT TO [facility]. PT AND FAMILY AGREEABLE TO PLAN. PROVIDER AND CARE MANAGEMENT INVOLVED IN PLANNING. CURRENTLY, PT IS RESTING IN BED W/FAMILY AT BEDSIDE AND CALL LIGHT IN REACH. WILL CONTINUE TO MONITOR AND TREAT ACCORDINGLY UNTIL CHANGE OF SHIFT.
[2023-10-21 20:15] VITALS: BP 122/85
[2023-10-22 04:04] VITALS: BP 139/86
--- NOTE | 2023-10-22 05:57 | NUR ---
PT SUMMARY: NO ACUTE CHANGE FOR THE SHIFT. PT SLEPT MOST OF THE SHIFT, WOKE UP AFTER MIDNIGHT D/T NIGH SWEATS BEDLINEN AND GOWNS WERE CHANGED, PT STILL HAS LEFT SHOULDER AND BACK PAIN MEDICATED WITH OXYCODONE AND TYLENOL AND BOTH WERE EFFECTIVE. PT USES URINAL FOR VOIDING MOVES INDEPENDENTLY IN BED. PT WAS BLADDER SCANNED POST VOID HAS 240 URINE MLS RETAINED AND PT WAS ABLE TO VOID ANOTHER 100MLS AFTER. PT HAS BEEN CALLING APPROPRIATELY ABLE TO MAKE NEEDS KNOWN. VITALS HAS BEEN STABLE SATS KEPT ABOVE 93% ON 2L OF O2, PT STILL HAS SOB WITH EXERTION. NO OTHER ISSUES REPROTED, WILL REPORT TO ONCOMING SHIFT
[2023-10-22 07:58] VITALS: BP 136/95
--- NOTE | 2023-10-22 09:46 | NUR ---
AM NOTE this rn assumed care at 0700. vital signs stable. medical no tele. patient is alert and oriented x4. perrla. patient is able to make needs known and uses call light appropriately. patient reports nerve pain in left shoulder and reports pain in back. patient received pain medication per emar. see emar. patient denies shortness of breath. titrated oxygen to 1l nc. patient denies chest pain/pressure. see shift assessment for further detials. plan is for patient to go home today on home heatlh. patient will have a o2 eval to see if needing oxygen. education on straigth catheterization for fullness sensation in bladder. md arteaga discussed this plan with the patient.
[2023-10-22] MEDS ORDERED: METO50ER PO (11:50)
[2023-10-22] MEDS ORDERED: GABA100 PO (11:51)
[2023-10-22] MEDS ORDERED: SENN187 PO (11:52)
[2023-10-22] MEDS ORDERED: XARELTO20 MG PO ×2 (11:52→11:55)
[2023-10-22] MEDS ORDERED: TAMS.4ER PO (11:53)
--- NOTE | 2023-10-22 13:37 | NUR ---
DISCHARGE this rn went over discharge education with the patient and patient sons. this rn went over new medications, purpose, action, and side effects to be aware of. this rn informed to follow up with primary care provider. patient and patient son verbalized understanding. patient left with all belongings and in no distress.
== END 2023-10-22 12:50 | disposition home health service (06) | DRG 175 ==
LOC: ER 09:17 → PCU 14:28
PROVIDERS: Emergency Medicine; Family Medicine; Student in an Organized Health Care Education/Training Program; ADMIT Internal Medicine
PROC: 5A0935A Assistance with Respiratory Ventilation, Less than 24 Consecutive Hours, High Flow/Velocity Cannula (ICD-10-PCS; principal; 2023-10-19)
DX: I26.99 Other pulmonary embolism without acute cor pulmonale (principal); J96.01 Acute respiratory failure with hypoxia; C49.9 Malignant neoplasm of connective and soft tissue, unspecified; I48.20 Chronic atrial fibrillation, unspecified; I50.32 Chronic diastolic (congestive) heart failure; D50.9 Iron deficiency anemia, unspecified; I11.0 Hypertensive heart disease with heart failure; N40.1 Benign prostatic hyperplasia with lower urinary tract symptoms; R33.8 Other retention of urine; J43.9 Emphysema, unspecified; Z98.41 Cataract extraction status, right eye; Z79.899 Other long term (current) drug therapy; Z79.2 Long term (current) use of antibiotics; Z79.01 Long term (current) use of anticoagulants; Z79.891 Long term (current) use of opiate analgesic; Z88.5 Allergy status to narcotic agent; Z11.52 Encounter for screening for COVID-19
CPT/HCPCS: 0241U; 36415; 71046; 71260; 80048; 80053; 81003; 82728; 83540; 83550; 83605; 83880; 84484; 85025; 85379; 85520; 85610; 85730; 93005; 93010; 93306; 94760; 94761; 94762; 96365-59; 97110; 97162; 97165; 97530; 99285-25; A9270; J0696; J1644; J1750; J7050; Q9967